=== PATIENT | female | born 1970 | race Two or more races ===

== ENCOUNTER → 2024-06-06 | Outpatient (CLI) | payer MEDICAID ==
[~2024-06-06] VITALS: Ht 147.3 cm; Wt 63.0 kg
[2024-06-06] MEDS: REGADENOSON 0.4 MG/5 ML SYRG IV ONE ×2 (10:08)
== END | disposition home or self-care (01) ==
LOC: XYW 08:28
PROVIDERS: ATTEND Specialist
DX: I49.3 Ventricular premature depolarization (principal); R00.2 Palpitations; R06.02 Shortness of breath; R00.0 Tachycardia, unspecified; I10 Essential (primary) hypertension; G89.4 Chronic pain syndrome; Z88.6 Allergy status to analgesic agent; Z91.030 Bee allergy status
CPT/HCPCS: 78452; 93017; A9500; J2785